=== PATIENT | male | born 1960 | race Caucasian/White ===

== ENCOUNTER 2017-02-18 22:02 | Observation (INO) | payer OTHER ==
[2017-02-18 22:15] VITALS: TEMP 98.3; BMI 34.5
[2017-02-18] MEDS ORDERED: ASPIRIN 81 MG CHEWABLE TABLETS PO ONE (22:20)
--- NOTE | 2017-02-18 22:21 | PDOC ---
History of Present Illness - General History Source: Patient Exam Limitations: No Limitations <Shanita Beal - Last Filed: 02/19/17 00:11> - General History Source: Patient Exam Limitations: No Limitations - History of Present Illness Presenting Symptoms: Other (left arm aching) Timing/Duration: reports: changing over time Severity/Quality: reports: aching Location: reports: other (left arm pain,no radiation) Activities at Onset: reports: none Prior Chest Pain/Cardiac Workup: reports: Cardiac Cath, Echocardiography, Heart Attack, Stress Test Nitro Today/Relief: Yes: no nitro taken today Aspirin Received prior to arrival (Core Measure): Yes: 81 mg x 2, provided by ED Beta Teri taken at Home (Core Measure): Yes Associated Symptoms: Yes: Denies symptoms <OsorioFiorella Lisa - Last Filed: 02/19/17 02:10> - General Chief Complaint: Pain, Acute Stated Complaint: LT ARM PAIN Time Seen by Provider: 02/18/17 22:14 - History of Present Illness Initial Comments: 02/18/17 22:40 The patient is a 56 year old male, with significant past medical history of CA s /p stents x3, HLD, HTN, who presents to the emergency department complaining of left arm pain that radiates to the hand starting 30 minutes ago. The patient states that this symptom occurred when he had heart attacks in the past. He is not experiencing chest pain or SOB at this time.The patient was also concerned that his blood pressure was 152/98. He notes that hiHe states that he had a normal EKG performed on Sunday, 3 days ago. Denies chest pain, SOB Denies fever, chills, nausea, vomiting. Allergies: poison ana, bee stings Energy Consultant: Dr. Navas (Shanita Beal) Past History <Shanita Beal - Last Filed: 02/19/17 00:11> - Past Medical History Anemia: No Asthma: No Cancer: No Cardiac Disorders: Yes (CA X 3) CVA: No COPD: No CHF: No DVT: No Dementia: No Diabetes: Yes (BORDERLINE) GI Disorders: Yes (REFLUX, RECTAL BLEEDING) Disorders: No HTN: Yes Hypercholesterolemia: Yes Liver Disease: No Seizures: No Thyroid Disease: No - Surgical History Abdominal Surgery: No Appendectomy: No Cardiac Surgery: Yes (STENT X 3) Cholecystectomy: No Lung Surgery: No Neurologic Surgery: No Orthopedic Surgery: Yes (LT THUMB SX, RT FINKY FOOT SX) - Psycho/Social/Smoking Cessation Hx Anxiety: No Suicidal Ideation: No Smoking Status: Yes Smoking History: Former smoker Have you smoked in the past 12 months: Yes Number of Cigarettes Smoked Daily: 20 If you are a former smoker, when did you quit?: 3 years Information on smoking cessation initiated: No 'Breaking Loose' booklet given: 08/27/14 Hx Alcohol Use: No Drug/Substance Use Hx: No Substance Use Type: None <Fiorella Ac - Last Filed: 02/19/17 02:10> - Past Medical History Allergies/Adverse Reactions: Allergies Allergy/AdvReac Type Severity Reaction Status Date / Time poison ana extract Allergy Verified 02/18/17 22:15 bee sting Allergy Uncoded 02/18/17 22:15 Home Medications: Ambulatory Orders Aspirin 81 mg PO DAILY 02/20/14 Metoprolol Succinate [Toprol XL -] 25 mg PO BID 02/20/14 Clopidogrel Bisulfate [Plavix -] 75 mg PO HS 09/28/14 Lisinopril [Prinivil] 5 mg PO DAILY 09/28/14 Oxycodone HCl/Acetaminophen [Percocet 5-325 mg Tablet] 1 - 2 tab PO Q6H #20 tablet 07/02/15 Gluc/Anil-MSM#1/Vit C/Daniel/Bor [Lmzfcde-Ovouh-ZVY Complex Cplt] 1 each PO ASDIR 02/18/17 Pravastatin Sodium [Pravachol] 40 mg PO HS 02/18/17 Cardiac Specific PMH - Complaint Specific PMHX Angina: Yes Cardiac Stent: Yes (x2) Pacemaker: No Peripheral Vascular Disease: No <Fiorella Ac - Last Filed: 02/19/17 02:10> Review of Systems - Review of Systems Able to Perform ROS?: Yes <Shanita Beal - Last Filed: 02/19/17 00:11> <Fiorella Ac - Last Filed: 02/19/17 02:10> - Review of Systems Comments:: 02/18/17 22:41 CONSTITUTIONAL: Absent: fever, chills, diaphoresis, generalized weakness, malaise, loss of appetite HEENT: Absent: rhinorrhea, nasal congestion, throat pain, throat swelling, difficulty swallowing, mouth swelling, ear pain, eye pain, visual Changes CARDIOVASCULAR: Absent: chest pain, syncope, palpitations, irregular heart rate, lightheadedness , peripheral edema RESPIRATORY: Absent: cough, shortness of breath, dyspnea with exertion, orthopnea, wheezing, stridor, hemoptysis GASTROINTESTINAL: Absent: abdominal pain, abdominal distension, nausea, vomiting, diarrhea, constipation, melena, hematochezia GENITOURINARY: Absent: dysuria, frequency, urgency, hesitancy, hematuria, flank pain, genital pain MUSCULOSKELETAL: Present: left arm pain. Absent: myalgia, arthralgia, joint swelling SKIN: Absent: rash, itching, pallor HEMATOLOGIC/IMMUNOLOGIC: Absent: easy bleeding, easy bruising, lymphadenopathy, frequent infections ENDOCRINE: Absent: unexplained weight gain, unexplained weight loss, heat intolerance, cold intolerance NEUROLOGIC: Absent: headache, focal weakness or paresthesias, dizziness, unsteady gait, seizure, mental status changes, bladder or bowel incontinence PSYCHIATRIC: Absent: anxiety, depression, suicidal or homicidal ideation, hallucinations. (Shanita Beal) *Physical Exam <Shanita Beal - Last Filed: 02/19/17 00:11> <Fiorella Ac - Last Filed: 02/19/17 02:10> - Vital Signs Last Vital Signs Temp Pulse Resp BP Pulse Ox 98.3 F 62 18 128/61 97 02/18/17 22:10 02/19/17 00:58 02/18/17 22:10 02/19/17 00:58 02/19/17 00:58 - Physical Exam Comments: 02/18/17 22:42 GENERAL: Well developed, well nourished. Awake and alert. In no acute distress. HEENT: Normocephalic, atraumatic. PERRLA, EOMI. No conjunctival pallor. Sclera are non- icteric. Moist mucous membranes. Oropharynx is clear. NECK: Supple. Full ROM. No JVD. Carotid pulses 2+ and symmetric, without bruits. No thyromegaly. No lymphadenopathy. CARDIOVASCULAR: Regular rate and rhythm. No murmurs, rubs, or gallops. Distal pulses are 2+ and symmetric. PULMONARY: No evidence of respiratory distress. Lungs clear to auscultation bilaterally. No wheezing, rales or rhonchi. ABDOMINAL: Soft. Non-tender. Non-distended. No rebound or guarding. No organomegaly. Normoactive bowel sounds. MUSCULOSKELETAL Normal range of motion at all joints. No bony deformities or tenderness. No CVA tenderness. EXTREMITIES: +1 pitting edema. No cyanosis. No clubbing. No calf tenderness. SKIN: Warm and dry. Normal capillary refill. No rashes. No jaundice. NEUROLOGICAL: Alert, awake, appropriate. Cranial nerves 2-12 intact. No deficits to light touch and temperature in face, upper extremities and lower extremities. No motor deficits in the in face, upper extremities and lower extremities. Normoreflexic in the upper and lower extremities. Normal speech. Toes are downgoing bilaterally. Gait is normal without ataxia. PSYCHIATRIC: Cooperative. Good eye contact. Appropriate mood and affect. (Shanita Beal) Heart Score/ECG Review <Shanita Beal - Last Filed: 02/19/17 00:11> - History History: Slightly suspicious - Electrocardiogram EKG: Normal - Age Age: 45-65 - Risk Factors Risk Factors Heart Score: Yes Hx Hypercholesterolemia, Yes Hx Hypertension, Yes Positive family hx of cardiac disease Based on the list above the patient has:: >/=3 risk factors or Hx atherosclerotic disease - Troponin Troponin: </= normal limit - Score Heart Score - Total: 3 #1 General ECG Interpretation: Normal Rate - ECG Intrepretation Rhythm: Regular Rhythm <Fiorella Ac - Last Filed: 02/19/17 02:10> #1 02/19/17 00:11 Normal sinus rhythm at 79bpm. Old inferior infarct. P-R-T axes 25 -34 87 (Shanita Beal) ED Treatment Course - LABORATORY CBC & Chemistry Diagram: 02/18/17 22:40 02/18/17 22:40 <Shanita Beal - Last Filed: 02/19/17 00:11> - LABORATORY CBC & Chemistry Diagram: 02/18/17 22:40 02/18/17 22:40 <Fiorella Ac - Last Filed: 02/19/17 02:10> - ADDITIONAL ORDERS Additional order review: Laboratory Results 02/18/17 02/18/1702/18/17 22:40 22:40 22:40 INR 0.96 Sodium 140 Potassium 4.2 Chloride 105 Carbon Dioxide 25 Anion Gap 10 BUN 17 D Creatinine 0.9 D Creat Clearance w eGFR > 60 Random Glucose 135 H Calcium 9.3 Magnesium 2.1 Total Bilirubin 0.3 D AST 23 D ALT 36 Alkaline Phosphatase 98 Creatine Kinase 161 D Creatine Kinase Index 1.7 CK-MB (CK-2) 2.699 CK-MB (CK-2) Rel Index Cancelled Troponin I < 0.02 D B-Natriuretic Peptide 107.22 Total Protein 6.9 Albumin 3.8 02/18/17 22:40 RBC 4.64 MCV 94.0 MCHC 34.0 RDW 14.0 MPV 9.3 Neutrophils % 47.4 D Lymphocytes % 41.9 H D Monocytes % 8.0 Eosinophils % 2.0 D Basophils % 0.7 - RADIOLOGY Radiology Studies Ordered: Category Date Time Status CHEST X-RAY PORTABLE* [RAD] Stat Radiology 02/18/17 22:21 Taken - Medications Given in the ED: ED Medications Discontinued Medications Generic Name Dose Route Start Last Admin Trade Name Freq PRN Reason Stop Dose Admin Aspirin 162 mg 02/18/17 22:20 02/18/17 22:34 Asa - PO 02/18/17 22:21 162 mg ONCE ONE Administration Medical Decision Making <Shanita Beal - Last Filed: 02/19/17 00:11> <Fiorella Ac - Last Filed: 02/19/17 02:10> - Medical Decision Making 02/19/17 02:06 56 yo male p/w after he dev left arm aching,denies trauma pmh-CA,CAD, CARDIAC STENTS,HTN,HLD ekg NSR @ 79 ,old inferior infarct,left axis deviation 1st trop is negative pt took plavix,baby aspirin and b blockers earlier today -spoke w Dr Schuster who is covering for Dr Lockett .Recommend OBS TELEMTRY -Dr Abel is admitting for Dr Billy reardon (Fiorella Ac) *DC/Admit/Observation/Transfer <Shanita Beal - Last Filed: 02/19/17 00:11> - Discharge Dispostion Admit: Yes <Fiorella Ac - Last Filed: 02/19/17 02:10> Diagnosis at time of Disposition: Angina at rest Hypertension Qualifiers: Hypertension type: essential hypertension Qualified Code(s): I10 - Essential ( primary) hypertension Coronary artery disease Qualifiers: Coronary Disease-Associated Artery/Lesion type: [place] artery [place] vs. transplanted heart: [place] heart Associated angina: with stable angina Qualified Code(s): I25.118 - Atherosclerotic heart disease of [place] coronary artery with other forms of angina pectoris - Discharge Dispostion Decision to Admit order Date/Time: Decision to Admit Order Category Date Time Status Decision to Admit to Hospital Routine Admission 02/19/17 01:12 Active - Referrals Referrals: Perfecto Cervantes MD [Primary Care Provider] - - Attestations Scribe Attestion: 02/18/17 22:42 Documentation prepared by JUDY Moreno, acting as medical assistant ob gyn for Fiorella Ac MD. (Shanita Beal)
[2017-02-18] MEDS ORDERED: ASPIRIN 81 MG CHEWABLE TABLETS ONE (22:30)
[2017-02-18 23:02] LABS: BASOPHIL 0.7 % (0-2.0); MCH 31.9 pg (25.7-33.7); MEAN PLT VOLUME 9.3 fl (7.5-11.1); NEUTROPHILS 47.4 % (42.8-82.8); PLATELET COUNT 231 K/MM3 (134-434); WHITE BLOOD COUNT 8.6 K/mm3 (4.0-10.0)
[2017-02-18 23:10] LABS: INR 0.96 (0.82-1.09); PROTHROMBIN TIME (PATIENT) 10.6 SEC (9.98-11.88)
[2017-02-18 23:30] LABS: ALBUMIN 3.8 g/dl (3.4-5.0); ANION GAP 10 (8-16); BILIRUBIN,TOTAL 0.3 mg/dL (0.2-1.0); CALCIUM 9.3 mg/dL (8.5-10.1); CO2 25 mmol/L (21-32); CREATININE 0.9 mg/dL (0.7-1.3); GLUCOSE,RANDOM 135 mg/dL (74-106); MAGNESIUM 2.1 mg/dL (1.8-2.4); SGOT/AST 23 U/L (15-37); SGPT/ALT 36 U/L (12-78); TOT PROT 6.9 g/dl (6.4-8.2)
[2017-02-18 23:33] LABS: ALK PHOS 98 U/L (45-117); TROPONIN I < 0.02 ng/ml (0.00-0.05)
--- NOTE | 2017-02-19 01:28 | HP ---
CHIEF COMPLAINT: L- Arm Pain PCP: Dr. Cervantes Night Monitor: Dr. Lockett HISTORY OF PRESENT ILLNESS: This is a 56 y/o male with a past medical history of ME x2 (2014,2013), HTN, HLD , Former Smoker. Who presents to the ED with L- arm pain x 3-4 days, worse tonight 2100. Patient reports the pain was similar to the ME he had 3 years ago. Patient reports recently starting weight strengthening to his upper body. He also reports restarting his meds 02/16 from last March due to lack of insurance. Patient reports being seen his PMD last Sunday for the same pain. Patient denies fever, chills, SOB, diaphoresis, AP, N/V/D, constipation, dysuria ER course was notable for: (1) Cardiac Enzyme neg x1 (2) EKG NSR inferior infarct age undetermined (3) Chest Xray image- no infiltrate or effusion Recent Travel: None PAST MEDICAL HISTORY: ME x2 HTN HLD Former Smoker PAST SURGICAL HISTORY: Social History: Smoking: Former Alcohol: Socially Drugs: None Family History: Mother: CHF Allergies poison ana extract Allergy (Verified 02/18/17 22:15) bee sting Allergy (Uncoded 02/18/17 22:15) HOME MEDICATIONS: Home Medications Medication Instructions Recorded Aspirin 81 mg PO DAILY 02/20/14 Metoprolol Succinate [Toprol XL -] 25 mg PO BID 02/20/14 Clopidogrel Bisulfate [Plavix -] 75 mg PO HS 09/28/14 Lisinopril [Prinivil] 5 mg PO DAILY 09/28/14 Oxycodone HCl/Acetaminophen 1 - 2 tab PO Q6H #20 tablet 07/02/15 [Percocet 5-325 mg Tablet] Gluc/Anil-MSM#1/Vit C/Daniel/Bor 1 each PO ASDIR 02/18/17 [Xnrxojk-Kzuzj-YRH Complex Cplt] Pravastatin Sodium [Pravachol] 40 mg PO HS 02/18/17 REVIEW OF SYSTEMS CONSTITUTIONAL: Absent: fever, chills, diaphoresis, generalized weakness, malaise, loss of appetite, weight change HEENT: Absent: rhinorrhea, nasal congestion, throat pain, throat swelling, difficulty swallowing, mouth swelling, ear pain, eye pain, visual changes CARDIOVASCULAR: Absent: chest pain, syncope, palpitations, irregular heart rate, lightheadedness , peripheral edema RESPIRATORY: Absent: cough, shortness of breath, dyspnea with exertion, orthopnea, wheezing, stridor, hemoptysis GASTROINTESTINAL: Absent: abdominal pain, abdominal distension, nausea, vomiting, diarrhea, constipation, melena, hematochezia GENITOURINARY: Absent: dysuria, frequency, urgency, hesitancy, hematuria, flank pain, genital pain MUSCULOSKELETAL: L-arm pain Absent: myalgia, arthralgia, joint swelling, back pain, neck pain SKIN: Absent: rash, itching, pallor HEMATOLOGIC/IMMUNOLOGIC: Absent: easy bleeding, easy bruising, lymphadenopathy, frequent infections ENDOCRINE: Absent: unexplained weight gain, unexplained weight loss, heat intolerance, cold intolerance NEUROLOGIC: Absent: headache, focal weakness or paresthesias, dizziness, unsteady gait, seizure, mental status changes, bladder or bowel incontinence PSYCHIATRIC: Absent: anxiety, depression, suicidal or homicidal ideation, hallucinations. PHYSICAL EXAMINATION Vital Signs - 24 hr 02/18/17 02/19/17 22:10 00:58 Temperature 98.3 F Pulse Rate 78 Pulse Rate [ 62 Apical] Respiratory 18 Rate Blood Pressure 152/98 Blood Pressure 128/61 [Right Arm] O2 Sat by Pulse 95 97 Oximetry (%) GENERAL: Awake, alert, and fully oriented, in no acute distress. HEAD: Normal with no signs of trauma. EYES: Pupils equal, round and reactive to light, extraocular movements intact, sclera anicteric, conjunctiva clear. No lid lag. EARS, NOSE, THROAT: Ears normal, nares patent, oropharynx clear without exudates. Moist mucous membranes. NECK: Normal range of motion, supple without lymphadenopathy, JVD, or masses. LUNGS: Breath sounds equal, clear to auscultation bilaterally. No wheezes, and no crackles. No accessory muscle use. HEART: Regular rate and rhythm, normal S1 and S2 without murmur, rub or gallop. ABDOMEN: Soft, nontender, not distended, normoactive bowel sounds, no guarding, no rebound, no masses. No hepatomegaly or splenomegaly. MUSCULOSKELETAL: +tenderness L- humerus medial aspect- Normal range of motion at all joints. No bony deformities. No CVA tenderness. UPPER EXTREMITIES: 2+ pulses, warm, well-perfused. No cyanosis. No clubbing. No peripheral edema. LOWER EXTREMITIES: 2+ pulses, warm, well-perfused. No calf tenderness. No peripheral edema. NEUROLOGICAL: Cranial nerves II-XII intact. Normal speech. Gait not observed. PSYCHIATRIC: Cooperative. Good eye contact. Appropriate mood and affect. SKIN: Warm, dry, normal turgor, no rashes or lesions noted, normal capillary refill. Laboratory Results - last 24 hr 02/18/17 02/18/17 02/18/17 22:40 22:40 22:40 WBC 8.6 D RBC 4.64 Hgb 14.8 Hct 43.6 MCV 94.0 MCHC 34.0 RDW 14.0 Plt Count 231 MPV 9.3 Neutrophils % 47.4 D Lymphocytes % 41.9 H D Monocytes % 8.0 Eosinophils % 2.0 D Basophils % 0.7 INR 0.96 Sodium 140 Potassium 4.2 Chloride 105 Carbon Dioxide 25 Anion Gap 10 BUN 17 D Creatinine 0.9 D Creat Clearance w eGFR > 60 Random Glucose 135 H Calcium 9.3 Magnesium 2.1 Total Bilirubin 0.3 D AST 23 D ALT 36 Alkaline Phosphatase 98 Creatine Kinase 161 D Creatine Kinase Index 1.7 CK-MB (CK-2) 2.699 CK-MB (CK-2) Rel Index Troponin I < 0.02 D B-Natriuretic Peptide 107.22 Total Protein 6.9 Albumin 3.8 02/18/17 22:40 WBC RBC Hgb Hct MCV MCHC RDW Plt Count MPV Neutrophils % Lymphocytes % Monocytes % Eosinophils % Basophils % INR Sodium Potassium Chloride Carbon Dioxide Anion Gap BUN Creatinine Creat Clearance w eGFR Random Glucose Calcium Magnesium Total Bilirubin AST ALT Alkaline Phosphatase Creatine Kinase Creatine Kinase Index CK-MB (CK-2) CK-MB (CK-2) Rel Index Cancelled Troponin I B-Natriuretic Peptide Total Protein Albumin ASSESSMENT/PLAN: This is a 56 y/o male with a PMHx of: MIx2, HTN, HLD. Placed on Tele Observation for L- arm pain r/o ME for further evaluation of heir emergent condition. Problem List - Problem (1) Left arm pain Assessment/Plan: - r/o ME - Tele monitoring - HEART Score 5 - Appreciate Cardiology Consult - Asa given in ED - Continue Asa, BB, Statin - Echo in am Code(s): M79.602 - PAIN IN LEFT ARM (2) Coronary artery disease Assessment/Plan: - Tele monitoring - EKG- reviewed - Trop I neg x1 - Serial Enzymes - Continue home meds - Low Na, Low Cholesterol Diet Code(s): I25.10 - ATHSCL HEART DISEASE OF [place] CORONARY ARTERY W/O ANG PCTRS Qualifiers: Coronary Disease-Associated Artery/Lesion type: [place] artery [place] vs. transplanted heart: [place] heart Associated angina: with stable angina Qualified Code(s): I25.118 - Atherosclerotic heart disease of [place] coronary artery with other forms of angina pectoris (3) Hypertension Assessment/Plan: - Monitor BP - Continue home meds - Low Na Diet Code(s): I10 - ESSENTIAL (PRIMARY) HYPERTENSION Qualifiers: Hypertension type: essential hypertension Qualified Code(s): I10 - Essential (primary) hypertension (4) HLD (hyperlipidemia) Assessment/Plan: - Continue home med - Lipid panel in am Code(s): E78.5 - HYPERLIPIDEMIA, UNSPECIFIED (5) DVT prophylaxis Assessment/Plan: - OOB - SCDs Code(s): JCA5607 - Visit type - Emergency Visit Emergency Visit: Yes ED Registration Date: 02/19/17 Care time: The patient presented to the Emergency Department on the above date and was hospitalized for further evaluation of their emergent condition. - New Patient This patient is new to me today: Yes Date on this admission: 02/19/17 - Critical Care Critical Care patient: No
[2017-02-19 06:45] LABS: BASOPHIL 0.4 % (0-2.0); MCH 32.1 pg (25.7-33.7); MCHC 33.7 g/dl (32.0-35.9); MEAN CELL VOLUME 95.2 fl (80-96); NEUTROPHILS 47.2 % (42.8-82.8); PLATELET COUNT 207 K/MM3 (134-434); RDW 14.2 % (11.9-15.9); WHITE BLOOD COUNT 6.5 K/mm3 (4.0-10.0)
[2017-02-19 07:06] LABS: CALCIUM 9.2 mg/dL (8.5-10.1); CREATININE 0.9 mg/dL (0.7-1.3); MAGNESIUM 2.1 mg/dL (1.8-2.4); PHOSPHOROUS 3.1 mg/dL (2.5-4.9)
[2017-02-19 07:09] LABS: CHOLESTEROL 163 mg/dL (50-200); LDL CHOLESTEROL (ONLY SJRH) 106 mg/dL (5-100)
[2017-02-19 07:11] LABS: TROPONIN I < 0.02 ng/ml (0.00-0.05)
[2017-02-19] MEDS ORDERED: LISINOPRIL 5 MG TABLET (FP) PO SCH (10:00)
[2017-02-19] MEDS ORDERED: ASPIRIN 81 MG CHEWABLE TABLETS PO SCH (10:00)
[2017-02-19] MEDS ORDERED: METOPROLOL SUCCINATE 25 MG TAB.SR.24H (FP) PO SCH (10:00)
[2017-02-19] MEDS ORDERED: ASPIRIN 81 MG CHEWABLE TABLETS ONE (10:02)
--- NOTE | 2017-02-19 10:28 | CON.CARD ---
Consult Consult Specialty:: cardio Referred by:: ER Reason for Consultation:: arm pain, h/o MIs - History of Present Illness Chief Complaint: arm pain History of Present Illness: 56 yo male here with arm pain. last saw me in office 06/03. was cycling long distance incl hills, feeling well without cp, sob, incr fatigue. noted sporadic tingling in bilateral lower arms near elbow when at work with a lot of activity involing his arms; also "muscle ache" quality of arm discomfort if lifts heavy things (different from prior arm myalgias on simva which were constant pains) insurance lapsed so no recent MD f/u. saw radha (pmd) 02/16 b/c of self-limited (approx 15min) episode localized dull discomfort in L upper arm near elbow. no radiation, no assctd chest or back/scapula pain, no diaph/sob/LH. then same sx's yest in car, this time with associated pain across R hand knuckles. again no radiation or assctd sx's and resolved on its own in 15min. pt says was mild, dull discomfort but very anxious about it ("scared the piss out of me") so came to ER for evaluation. he has continued to exercise regularly, does sta bike 35min at gym including earlier yest--no cp, arm pain, sob, dizzy, undue fatigue. prior OK sx's were CP with associated L scapular pain, once with pain down entire L arm from shoulder to hand PMH: CAD, prior MIs HTN HPL - Alcohol/Substance Use Hx Alcohol Use: No - Smoking History Smoking history: Former smoker Have you smoked in the past 12 months: Yes Aproximately how many cigarettes per day: 20 If you are a former smoker, when did you quit?: 3 years Home Medications - Allergies Allergies/Adverse Reactions: Allergies Allergy/AdvReac Type Severity Reaction Status Date / Time poison ana extract Allergy Verified 02/18/17 22:15 bee sting Allergy Uncoded 02/18/17 22:15 - Home Medications Home Medications: Ambulatory Orders Aspirin 81 mg PO DAILY 02/20/14 Metoprolol Succinate [Toprol XL -] 25 mg PO BID 02/20/14 Clopidogrel Bisulfate [Plavix -] 75 mg PO HS 09/28/14 Lisinopril [Prinivil] 5 mg PO DAILY 09/28/14 Oxycodone HCl/Acetaminophen [Percocet 5-325 mg Tablet] 1 - 2 tab PO Q6H #20 tablet 07/02/15 Gluc/Anil-MSM#1/Vit C/Daniel/Bor [Idpjfrc-Fmecj-EWY Complex Cplt] 1 each PO ASDIR 02/18/17 Pravastatin Sodium [Pravachol] 40 mg PO HS 02/18/17 Vital Signs: Vital Signs Temperature 98.3 F 02/18/17 22:10 Pulse Rate 64 02/19/17 07:49 Respiratory Rate 16 02/19/17 07:49 Blood Pressure 133/85 02/19/17 07:49 O2 Sat by Pulse Oximetry (%) 94 L 02/19/17 07:49 - Other Data Labs, Other Data: CBC, BMP 02/19/17 06:35 02/19/17 06:35 INR, PTT INR 0.96 (0.82-1.09) 02/18/17 22:40 Troponin, BNP 02/19/17 06:35 Troponin I < 0.02 Troponin, BNP 02/19/17 06:35 Troponin I < 0.02 Laboratory Tests 02/18/17 02/19/17 02/19/17 22:40 06:35 06:35 WBC 6.5 Hgb 14.7 Plt Count 207 Sodium 142 Potassium 4.4 Carbon Dioxide 28 BUN 20 H Creatinine 0.9 Hemoglobin A1c % AST 23 D ALT 36 Creatine Kinase 161 D Troponin I < 0.02 D B-Natriuretic Peptide 107.22 Triglycerides Cholesterol Total LDL Cholesterol HDL Cholesterol 02/19/17 02/19/17 02/19/17 06:35 06:35 06:35 WBC Hgb Plt Count Sodium Potassium Carbon Dioxide BUN Creatinine Hemoglobin A1c % 6.3 H AST ALT Creatine Kinase 122 Troponin I < 0.02 B-Natriuretic Peptide Triglycerides 129 Cholesterol 163 Total LDL Cholesterol 106 H HDL Cholesterol 36 L Imaging - Results Chest X-ray: Report Reviewed (clear lungs/pleura) Assessment/Plan MPI 08/2014: 6:55 min; small, predominantly fixed defect/severe intensity basal inferior/inferolateral wall with minimal michelle-infarct ischemia c/w prior scar; minimally reduced LVEF Echo 09/2015: nl LV size, mild decr EF (45-50%); akinesis mid-basal inferolateral wall; nl RV; mild LAE; valves WNL [facility] 02/2014: ISR with thrombotic lesion distal LCX (90%)--Xience; patent LPDA stent; 50-60% mid LAD; mild diffuse dz incl prox LAD atypical CP: -EKG here with NSR, old IWMI, nonsp ST-Ts high lateral leads--not changed vs office -repeat ECG this am unchanged -troponin x 2 negative -echo was ordered in ER, results are pending -sx's are highly atypical, very unlikely anginal and not like his prior angina pains; -biomarkers/ekg reassuring, no concerning clinical findings -rec f/u echo for LV fxn (expect basal infer/inferolat WMA, scar known here) -otherwise, pt can have outpt stress echo and continue prior home meds until cleared by normal stress test--i will arrange h/o CAD: -left-dominant coronary anatomy system with prior PCIs of distal LCX and LPDA -IW STEMI 02/2014 due to thrombotic in-stent occlusion of distal LCX--Xience JODY done -no residual obstructive CAD (moderate 50-60% dz in mid LAD) -followup nuclear stress test 6 mo later (08/2014) no ischemia, +scar in basal inferior/inferolateral wall -plan was DAPT x 3 yrs (DAPT trial)--cont for now -on lisin 5, metopr 25 bid, prava 40 HTN: -well controlled -cont home meds HPL: -LDL 100s -on prava 40 at home, intolerant of prior simva trial -defer to outpt f/u ? intensify statin regimen IFG: -A1c 6.3% here -outpt mgmt
[2017-02-19 13:18] LABS: TROPONIN I < 0.02 ng/ml (0.00-0.05)
--- NOTE | 2017-02-19 16:09 | DS ---
Physical Exam: SUBJECTIVE: Patient seen and examined. denies any chest pain or shortness of breath. Agreed to see Dr. Lockett for further test as an outpatient. OBJECTIVE: lungs clear bilaterally denies chest pain, shortness of breath L scapular pain pain down entire L arm from shoulder to hand - resolved Vital Signs Period Temp Pulse Resp BP Sys/Hansen Pulse Ox Last 24 Hr 63-64 16-18 129-133/74-85 94-95 PHYSICAL EXAM GENERAL: The patient is awake, alert, and fully oriented, in no acute distress. HEAD: Normal with no signs of trauma. EYES: PERRL, extraocular movements intact, sclera anicteric, conjunctiva clear. ENT: Ears normal, nares patent, oropharynx clear without exudates, moist mucous membranes. NECK: Trachea midline, full range of motion, supple. LUNGS: Breath sounds equal, clear to auscultation bilaterally, no wheezes, no crackles, no accessory muscle use. HEART: Regular rate and rhythm, S1, S2 without murmur, rub or gallop. ABDOMEN: Soft, nontender, nondistended, normoactive bowel sounds, no guarding, no rebound, no hepatosplenomegaly, no masses. EXTREMITIES: 2+ pulses, warm, well-perfused, no edema. NEUROLOGICAL: Cranial nerves II through XII grossly intact. Normal speech, gait not observed. PSYCH: Normal mood, normal affect. SKIN: Warm, dry, normal turgor, no rashes or lesions noted. LABS Laboratory Results - last 24 hr 02/19/17 02/19/17 02/19/17 06:35 06:35 06:35 WBC 6.5 RBC 4.57 Hgb 14.7 Hct 43.5 MCV 95.2 MCHC 33.7 RDW 14.2 Plt Count 207 MPV 9.0 Neutrophils % 47.2 Lymphocytes % 40.8 H Monocytes % 9.6 Eosinophils % 2.0 Basophils % 0.4 Sodium 142 Potassium 4.4 Chloride 106 Carbon Dioxide 28 Anion Gap 8 BUN 20 H Creatinine 0.9 Random Glucose 108 H Hemoglobin A1c % Calcium 9.2 Phosphorus 3.1 Magnesium 2.1 Creatine Kinase 122 Troponin I < 0.02 Triglycerides Cholesterol Total LDL Cholesterol HDL Cholesterol 02/19/17 02/19/17 02/19/17 06:35 06:35 12:40 WBC RBC Hgb Hct MCV MCHC RDW Plt Count MPV Neutrophils % Lymphocytes % Monocytes % Eosinophils % Basophils % Sodium Potassium Chloride Carbon Dioxide Anion Gap BUN Creatinine Random Glucose Hemoglobin A1c % 6.3 H Calcium Phosphorus Magnesium Creatine Kinase 98 Troponin I < 0.02 Triglycerides 129 Cholesterol 163 Total LDL Cholesterol 106 H HDL Cholesterol 36 L HOSPITAL COURSE: Date of Admission:02/19/17 Date of Discharge: 02/19/17 Discharge Summary Reason For Visit: ANGINA AT REST HYPERTENSION Current Active Problems Angina at rest (Acute) Coronary artery disease (Acute) DVT prophylaxis (Acute) HLD (hyperlipidemia) (Acute) Hypertension (Acute) Left arm pain (Acute) Condition: Stable - Instructions Diet, Activity, Other Instructions: Patient to have outpatient stress echo as an outpatient and continue prior home meds until cleared by normal stress test--Dr. Lockett will arrange. Please return to the ED with any new or worsening pain. Please follow up with your PCP regarding your hemoglobin A1c @ 6.3 Referrals: Perfecto Cervantes MD [Primary Care Provider] - Isidro Lockett MD [Staff Physician] - Disposition: HOME - Home Medications Comprehensive Discharge Medication List: Ambulatory Orders Aspirin 81 mg PO DAILY 02/20/14 Metoprolol Succinate [Toprol XL -] 25 mg PO BID 02/20/14 Clopidogrel Bisulfate [Plavix -] 75 mg PO HS 09/28/14 Lisinopril [Prinivil] 5 mg PO DAILY 09/28/14 Gluc/Anil-MSM#1/Vit C/Daniel/Bor [Imvngnd-Ydzkr-VEW Complex Cplt] 1 each PO ASDIR 02/18/17 Pravastatin Sodium [Pravachol] 40 mg PO HS 02/18/17
[2017-02-19 16:43] VITALS: BP 112/74; PULSE 65
[2017-02-19] MEDS ORDERED: PRAVASTATIN NA 40 MG TABLET PO SCH (22:00)
[2017-02-19] MEDS ORDERED: CLOPIDOGREL BISULFATE 75 MG TABLET (FP) PO SCH (22:00)
--- NOTE | 2017-02-20 17:39 | EKG ---
Test Reason : Blood Pressure : / mmHG Vent. 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
--- NOTE | 2017-02-20 17:46 | EKG ---
Test Reason : Blood Pressure : / mmHG Vent. 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
== END 2017-02-19 18:47 | disposition home or self-care (01) ==
LOC: JER 22:02 → JERBED 02-19 01:12 → UNDOADMOB 02-19 01:52
PROVIDERS: ADMIT Internal Medicine; ATTEND Nurse Practitioner Family
DX: M79.602 Pain in left arm (principal); I10 Essential (primary) hypertension; I25.118 Atherosclerotic heart disease of native coronary artery with other forms of angina pectoris; Z95.5 Presence of coronary angioplasty implant and graft; E78.5 Hyperlipidemia, unspecified; R73.03 Prediabetes; K21.9 Gastro-esophageal reflux disease without esophagitis; Z87.19 Personal history of other diseases of the digestive system; Z87.891 Personal history of nicotine dependence; Z79.82 Long term (current) use of aspirin; Z79.01 Long term (current) use of anticoagulants
CPT/HCPCS: 36415; 71010-TC; 80048; 80053; 80061; 82550; 82553; 83036; 83721; 83735; 83880; 84100; 84484; 85025; 85610; 93005; 93010; 93306-TC; 99283-25; G0378

== ENCOUNTER 2018-11-07 11:48 | Day surgery (SDC) | payer BC ==
[2018-11-06 17:16] VITALS: BMI 38.7
[2018-11-07] MEDS ORDERED: MIDAZOLAM HCL 2 MG/2 ML SINGLE DOSE VIAL ONE ×2 (13:16→14:41)
[2018-11-07] MEDS ORDERED: DEXAMETHASONE SOD PHOSPHATE/PF 10 MG/ML SDV ONE (13:16)
[2018-11-07] MEDS ORDERED: BUPIVACAINE HCL/PF (5 MG/ML) 30 ML VIAL IJ ONE (13:16)
[2018-11-07] MEDS ORDERED: DEXMEDETOMIDINE HCL 200 MCG/2 ML ML IVPB ONE (14:12)
[2018-11-07] MEDS ORDERED: BUPIVACAINE HCL/PF 2.5 MG/ML - 30 ML VIAL IJ ONE (14:20)
[2018-11-07] MEDS ORDERED: ceFAZolin SODIUM 1 GM VIAL ONE (14:38)
[2018-11-07] MEDS ORDERED: oxyCODONE HCL 5 MG TABLET PO PRN ×2 (15:17→16:54)
[2018-11-07] MEDS ORDERED: ONDANSETRON 4 MG/2 ML VIAL IVPUSH PRN ×2 (15:17→16:54)
[2018-11-07] MEDS ORDERED: BUPIVACAINE HCL/PF 0.25% (2.5MG/ML) 10 ML VIAL IJ ONE ×2 (15:22→16:28)
[2018-11-07] MEDS ORDERED: PROPOFOL 20 ML ONE (15:28)
[2018-11-07] MEDS ORDERED: LACTATED RINGERS SOLUTION 1,000 ML IV SCH ×2 (15:30→17:00)
[2018-11-07] MEDS ORDERED: IBUPROFEN 400 MG TABLET (FP) PO PRN (16:54)
[2018-11-07] MEDS ORDERED: ACETAMINOPHEN 325 MG TABLET (FP) PO PRN (16:54)
--- NOTE | 2018-11-07 17:12 | OPR ---
DATE OF SURGERY: 11/07/18 TITLE OF OPERATION: RIGHT Distal Biceps Repair PREOPERATIVE DIAGNOSIS: RIGHT Distal Biceps Rupture POSTOPERATIVE DIAGNOSIS: RIGHT Distal Biceps Rupture SURGEON: Shaheen Vale D.O. SWITCHBOARD INSTALLER: Aaron Mcconnell D.O. ANESTHESIA: Regional SPECIMEN: Distal Biceps tendon IMPLANT: Arthrex Distal Biceps Button COMPLICATIONS: None EBL: 2ml TOURNIQUET TIME: 80 mins INDICATIONS FOR SURGERY: Mr. Guardado is a 58 year old male who presented in the preoperative setting with a chief complaint of right distal biceps tendon rupture. Based on their pre -injury level of activity, surgical treatment was discussed. The risks and benefits of surgery and anesthesia were discussed in detail including but not limited to pain, bleeding, continued weakness, infection, scarring, damage to vessels and nerves, failure to obtain the desired result, failure to heal, failure to return to sport or work. Understanding the risks and benefits, Mr. Remy opted to proceed with surgical management. SURGEONS NARRATIVE: After informed consent was obtained, the patient was brought to the operating room prepped and draped in usual fashion using sterile technique. Timeout was called. Site verification was performed and perioperative antibiotics were administered. An elbow tourniquet was placed and elevated. A transverse incision, 3 cm in length, was made just distal to the elbow flexion crease. Dissection was carried down bluntly to the biceps tuberosity taking care to avoid all nearby neurovascular structures. A 2-0 silk suture was used to tie off a two veins that were adhered to the distal biceps and impeding visualization. Examination of the biceps tuberosity revealed a near complete tear of the biceps tendon with only about 5% of the surface area covered by tendon laterally. This portion of the tendon did not appear normal. I then turned my attention proximally to identify the torn stump of the biceps tendon. I was easily able to identify it confirming that the vast majority of the tendon had been torn off of the tuberosity. I placed a whipstitch into the tendon using a fiber loop suture passing 5 locked sutures through the tendon end. Once I felt that I had a good hold on the tendon I then placed the sutures through a biceps button in a standard fashion. They were passed to allow for tension slide technique. I then used a spade-tip guidewire to drill through the center of the biceps tuberosity with the forearm held in hyper supination. Once through the first cortex, I confirmed it's correct positioning with a mini c-arm fluroscopy. Once confirmed in good position, I drilled the drill bit through the second cortex. I then overdrilled the proximal cortex with a 7.5 mm drill bit. I irrigated the elbow at this point liberally. I passed the biceps button across the far cortex and flipped it locking firmly. I then marcus the distal biceps tendon into the socket I created with the elbow flexed about 45. I then used a free needle to thread one of the limbs of suture through the tendon, and tied the sutures over the tendon to complete the construct. This created a very strong construct that remained secure through flexion extension of the elbow. The tourniquet was released, and bleeders were cauterized. I liberally irrigated the elbow with normal saline. I closed the volar forearm incision proximally with 2-0 Vicryl for the subcutaneous layer and a running 3-0 Monocryl for the skin. Dermabond was used, and sterile telfa pad, then sterile 4x4's and webril were placed over the wound. The patient was then placed in elbow splint posteriorly at 90 elbow flexion, in slight supination. The patient tolerated procedure well and arrived recovery in stable condition. His follow up date has already been made, and prescriptions already filled. He will keep the splint clean/dry, and his right arm in a sling at all times. He knows to call the office with any questions. Dr. Aaron Mcconnell was 1st diet assistant in the case due to no qualified resident or PA being available. Shaheen Vale, Orthopedic Surgery
[2018-11-07 18:50] VITALS: BP 110/62; PULSE 60; TEMP 97.7
--- NOTE | 2018-11-11 16:55 | PATH ---
Surgical Pathology Report Patient Name: GUERITA FREIRE Med. Rec. #: [id number] /Age/Gender: 1960 (Age: 58) / M Account: [id number] Location: [facility] AMBULATORY Taken: 11/08/2018 Received: 11/08/2018 Reported: 11/11/2018 Physicians: Shaheen Vale MD Specimen(s) Received RIGHT BICEPS TENDON SHEATH Clinical History Right distal biceps tendon rupture Final Diagnosis BICEPS TENDON SHEATH, RIGHT, REPAIR: FIBROCONNECTIVE AND FIBROADIPOSE TISSUE WITH GRANULATION TISSUE, HEMORRHAGE, AND REACTIVE CHANGES. Electronically Signed Anastasia Montelongo M.D. Gross Description Received in formalin labeled "right biceps tendon sheath," is a 3.3 x 1.8 x 0.7 cm elizabeth-brown, irregular portion of soft tissue is. Server Developer sections are submitted in one cassette. /11/08/201811/08/2018
== END 2018-11-07 18:40 | disposition home or self-care (01) ==
LOC: FASU 11:48
PROVIDERS: ATTEND Orthopaedic Surgery Sports Medicine
PROC: 0LM10ZZ Reattachment of Right Shoulder Tendon, Open Approach (ICD-10-PCS; principal; 2018-11-07 13:30)
DX: S46.211A Strain of muscle, fascia and tendon of other parts of biceps, right arm, initial encounter (principal); X58.XXXA Exposure to other specified factors, initial encounter; Y93.9 Activity, unspecified; Y92.9 Unspecified place or not applicable
CPT/HCPCS: 73070-TC-RT-FY; 88304-TC; 94760

== ENCOUNTER 2018-11-20 22:48 | Observation (INO) | payer BC ==
[2018-11-20 23:06] VITALS: BMI 38.7
--- NOTE | 2018-11-21 01:21 | PDOC ---
History of Present Illness - General Chief Complaint: Chest Pain Stated Complaint: HALLWAY 11A Time Seen by Provider: 11/21/18 01:21 History Source: Patient Exam Limitations: No Limitations - History of Present Illness Initial Comments: 11/21/18 01:54 58 year old male with PMH AR x3, HTN, HLD, former smoker presented to ED for anterior chest wall pain from 2245 last night to 0045 today. Pt stated the pain is located to his lateral lower chest bilaterally, was constant, self resolved, no alleviating or aggravating factors. Pt admitted to nonproductive cough since this morning. Pt denied fever, chills, shortness of breath, nausea, vomiting, lower extremity swelling. Pt had biceps tendon rupture surgically repaired x2 weeks ago. Pt stated he took 325 mg ASA 11/21/18. Pt stated prior presentation of AR involved cough and back pain. Past History - Past Medical History Allergies/Adverse Reactions: Allergies Allergy/AdvReac Type Severity Reaction Status Date / Time poison ana extract Allergy Severe Hives Verified 11/07/18 12:43 bee sting Allergy Severe Swelling Uncoded 11/07/18 12:43 Home Medications: Ambulatory Orders Aspirin 81 mg PO DAILY 02/20/14 Metoprolol Succinate [Toprol XL -] 25 mg PO DAILY 02/20/14 Pravastatin Sodium [Pravachol] 40 mg PO DAILY 02/18/17 Cholecalciferol (Vitamin D3) [Vitamin D3] 2,000 unit PO DAILY 11/06/18 Lisinopril/Hydrochlorothiazide [Lisinopril-Hctz 10-12.5 mg Tab] 1 each PO DAILY 11/06/18 Pantoprazole Sodium 40 mg PO DAILY 11/06/18 Anemia: No Asthma: No Cancer: No Cardiac Disorders: Yes (AR X 3-LAST 2012-LAST STRESS 2017-PER CARDIOLOGY, STOPPED PLAVIX 1 WEEK AGO) CVA: No COPD: No CHF: No (NO NEED TO RESTART) DVT: No Dementia: No Diabetes: No GI Disorders: Yes (REFLUX, RECTAL BLEEDING) Disorders: No HTN: Yes Hypercholesterolemia: Yes Liver Disease: No Seizures: No Thyroid Disease: No - Surgical History Abdominal Surgery: No Appendectomy: No Cardiac Surgery: Yes (STENT X 3-LAST 2012) Cholecystectomy: No Lung Surgery: No Neurologic Surgery: No Orthopedic Surgery: Yes (LT THUMB SX, RT PINKY FOOT SX) - Suicide/Smoking/Psychosocial Hx Smoking Status: Yes Smoking History: Former smoker Have you smoked in the past 12 months: No Number of Cigarettes Smoked Daily: 20 If you are a former smoker, when did you quit?: 2012 Information on smoking cessation initiated: No 'Breaking Loose' booklet given: 08/27/14 Hx Alcohol Use: No Drug/Substance Use Hx: No Substance Use Type: Alcohol Hx Substance Use Treatment: No Review of Systems - Review of Systems Able to Perform ROS?: Yes Comments:: 11/21/18 03:06 General: denied fever, chills, night sweats, generalized weakness. HEENT: denied sore throat, rhinorrhea, ear pain. Heart: admitted to chest pain. denied palpitations, syncope, lower extremity swelling, diaphoresis. Respiratory: denied shortness of breath, cough, sputum production, hemoptysis. Abdomen: denied abdominal pain, nausea, vomiting, diarrhea, constipation, blood in stool. : denied dysuria, increased urinary frequency, hematuria, urinary incontinence , flank pain. Back: denied back pain. Musculoskeletal: denied joint pain, muscle pain, joint swelling. Neurological: denied headache, dizziness, n *Physical Exam - Vital Signs Last Vital Signs Temp Pulse Resp BP Pulse Ox 98.1 F 84 20 141/74 97 11/20/18 23:03 11/20/18 23:03 11/20/18 23:03 11/20/18 23:03 11/20/18 23:03 - Physical Exam Comments: 11/21/18 03:06 Constitutional: Well-nourished, Well-developed, appearing stated age. HEENT: head is normocephalic, atraumatic. EOMI. PERRLA. Neck: supple. Full ROM. Heart: regular rhythm. no murmurs, rubs or gallops. Lungs: clear to auscultation bilaterally. no crackles, rhonchi or wheezing. no stridor. Abdomen: soft, nontender. normal bowel sounds. no rebound, guarding, masses. Extremities: Peripheral pulses intact and equal. No lower extremity edema. Neurological: CN 2-12 grossly intact. Moves all four extremities. Psych: awake, alert, oriented x3. Follows commands. Answers questions appropriately. Moderate Sedation - Procedure Monitoring Vital Signs: Procedure Monitoring Vital Signs Temperature 98.1 F 11/20/18 23:03 Pulse Rate 84 01/02/19 23:03 Respiratory Rate 20 11/20/18 23:03 Blood Pressure 141/74 11/20/18 23:03 O2 Sat by Pulse Oximetry (%) 97 11/20/18 23:03 Heart Score/ECG Review - History History: Slightly suspicious - Electrocardiogram EKG: Non specific repolarization disturbance - Age Age: 45-65 - Risk Factors Risk Factors Heart Score: Yes Hx Hypercholesterolemia, Yes Hx Hypertension, Yes Smoking History, Yes Hx Obesity Based on the list above the patient has:: >/=3 risk factors or Hx atherosclerotic disease - Troponin Troponin: </= normal limit - Score Heart Score - Total: 4 ED Treatment Course - LABORATORY CBC & Chemistry Diagram: 11/21/18 01:51 11/21/18 01:51 Medical Decision Making - Medical Decision Making 11/21/18 02:55 58 year old male with above PMH presented to ED for bilateral anterior chest wall pain. Initial Vital Signs Temp Pulse Resp BP Pulse Ox 98.1 F 84 20 141/74 97 11/20/18 23:03 11/20/18 23:03 11/20/18 23:03 11/20/18 23:03 11/20/18 23:03 Afebrile. No tachycardia. No tachypnea. Mild hypertension. No hypoxia on room air. Labs ordered: CBC, CMP, troponin, BNP Imaging ordered: CXR Medications ordered: none - Pt took 325 mg ASA yesterday EKG performed at 2313: rate 76, regular rhythm, left axis, normal intervals, isolated flipped T in aVL, isolated flat T in V2, inferior Q waves. CXR my read: sharp costophrenic angles. cardiomegaly. no pneumothorax. no infiltrate. similar to prior 02/18/17. - Pending official read CBC WBC 8.2 K/mm3 (4.0-10.0) 11/21/18 01:51 RBC 4.35 M/mm3 (4.00-5.60) 11/21/18 01:51 Hgb 14.4 GM/dL (11.7-16.9) 11/21/18 01:51 Hct 41.4 % (35.4-49) 11/21/18 01:51 MCV 95.1 fl (80-96) 11/21/18 01:51 MCH 33.1 pg (25.7-33.7) 11/21/18 01:51 MCHC 34.8 g/dl (32.0-35.9) 11/21/18 01:51 RDW 13.5 % (11.9-15.9) 11/21/18 01:51 Plt Count 282 K/MM3 (134-434) D 11/21/18 01:51 MPV 8.8 fl (7.5-11.1) 11/21/18 01:51 Absolute Neuts (auto) 4.3 K/mm3 (1.5-8.0) 11/21/18 01:51 Neutrophils % 52.3 % (42.8-82.8) 11/21/18 01:51 Lymphocytes % 37.7 % (8-40) 11/21/18 01:51 Monocytes % 7.7 % (3.8-10.2) 11/21/18 01:51 Eosinophils % 1.8 % (0-4.5) 11/21/18 01:51 Basophils % 0.5 % (0-2.0) 11/21/18 01:51 Nucleated RBC % 0 % (0-0) 11/21/18 01:51 No leukocytosis. No anemia. CMP Sodium 137 mmol/L (136-145) 11/21/18 01:51 Potassium 4.0 mmol/L (3.5-5.1) 11/21/18 01:51 Chloride 104 mmol/L (98-107) 11/21/18 01:51 Carbon Dioxide 26 mmol/L (21-32) 11/21/18 01:51 Anion Gap 7 MMOL/L (8-16) L 11/21/18 01:51 BUN 25 mg/dL (7-18) H 11/21/18 01:51 Creatinine 1.1 mg/dL (0.55-1.3) 11/21/18 01:51 Creat Clearance w eGFR > 60 (>60) 11/21/18 01:51 Random Glucose 112 mg/dL (74-106) H 11/21/18 01:51 Calcium 9.4 mg/dL (8.5-10.1) 11/21/18 01:51 Total Bilirubin 0.3 mg/dL (0.2-1) 11/21/18 01:51 AST 24 U/L (15-37) 11/21/18 01:51 ALT 48 U/L (13-61) 11/21/18 01:51 Alkaline Phosphatase 111 U/L (45-117) 11/21/18 01:51 Creatine Kinase 61 IU/L (26-308) 11/21/18 01:51 Troponin I < 0.02 ng/ml (0.00-0.05) 11/21/18 01:51 B-Natriuretic Peptide 48.4 pg/ml (5-125) 11/21/18 01:51 Total Protein 7.5 g/dl (6.4-8.2) 11/21/18 01:51 Albumin 3.8 g/dl (3.4-5.0) 11/21/18 01:51 No electrolyte abnormalities. No MARK. BUN/CR >20 - Pt is dehydrated No transminitis. Normal cardiac enzymes. Normal BNP. Will repeat cardiac enzymes and EKG. 11/21/18 05:41 Second troponin negative. Will page pt's marketing forecaster, Dr. Lockett. 11/21/18 05:46 Dr. Miranda, covering for Dr. Lockett, paged. 11/21/18 05:57 Dr. Miranda recommended observation. Pt informed of recommendations. Pt agrees to stay for admission. Pending admission. *DC/Admit/Observation/Transfer Diagnosis at time of Disposition: Chest pain - Discharge Dispostion Condition at time of disposition: Improved Decision to Admit order: Yes - Referrals - Patient Instructions - Post Discharge Activity
--- NOTE | 2018-11-21 02:00 | PDOC ---
Attending Attestation - [facility] HPI: 11/21/18 02:01 The patient is a 56 year old male, with a significant PMH of PA s/p stents x3, HLD, HTN who presents to the emergency department with lateral chest discomfort earlier today. Patient also complained of an episode of midsternal chest pain that resolved on its own. Patient states the chest discomfort is nonradiating and intermittent, not exacerbated with breathing. Patient notes he was having a nonproductive cough this morning. Patient saw Dr. Lockett, cardiology, three weeks ago, and had an ECHO done then, which was normal. Patient has also had a stress test within this past year, which was normal. The patient denies shortness of breath, headache and dizziness. Denies fever, chills, nausea, vomit, diarrhea and constipation. Denies dysuria, frequency, urgency and hematuria. Allergies: poison ana, bee stings Past surgical history: None reported. Social history: No reported alcohol, drug or cigarette use. [employer] Senior Sergeant: Dr. Lockett - Physicial Exam PE: 11/21/18 02:02 ADULT PHYSICAL EXAM Constitutional: Awake, alert, oriented. No acute distress. Head: Normocephalic. Atraumatic Eyes: PERRL. EOMI. Conjunctivae are not pale. ENT: Mucous membranes are moist and intact. Posterior pharynx without exudates or erythema. Uvula midline. Neck: Supple. Full ROM. No lymphadenopathy. Cardiovascular: Regular rate. Regular rhythm. S1, S2 regular. Distal pulses are 2+ and symmetric. Pulmonary/Chest: No evidence of respiratory distress. Clear to auscultation bilaterally No wheezing, rales or rhonchi. Abdominal: Soft and non-distended. There is no tenderness. No rebound, guarding or rigidity. No organomegaly. No palpable masses. Good bowel sounds. Back: No CVA tenderness. Musculoskeletal: No edema. No cyanosis. No clubbing. Full range of motion in all extremities. Nocalf tenderness. Radial/pedal pulses are intact and 2+ bilaterally Skin: Skin is warm and dry. No petechiae. No purpura. Neurological: Alert and oriented to person, place, and time. Cranial nerves II -XII are grossly intact. Normal speech. Strength is grossly symmetric. No sensory deficits. Psychiatric: Good eye contact. Normal interaction, affect and behavior. <Dianne,Anusha - Last Filed: 11/21/18 02:01> - Resident Resident Name: Irma Gasca - ED Attending Attestation I have performed the following: I have examined & evaluated the patient, The case was reviewed & discussed with the resident, I agree w/resident's findings & plan, Exceptions are as noted - Medical Decision Making 11/21/18 01:56 I, Dr. Nadine Vines, DO, attest that this document has been prepared under my direction and personally reviewed by me in its entirety. I further attest, that it accurately reflects all work, treatment, procedures and medical decision -making performed by me. 11/21/18 01:56 a/p: 58yo male with hx of PA presents for eval of lateral chest wall pain and an episode of midsternal cp -no sob -no pleuritic component -recent RUE sx -hx of PA - cards Dr. Lockett -off plavix x 2 weeks -on full dose asa -pt is not in acute pain -no leg swelling -will send labs, ekg, cxr -took ASA today -Ortho - Dr. Vale -Will otain trop x 2, discussion with cards 11/21/18 02:04 pt with a cough - cxr clear cough is nonproductive has presented with PA in the past when he had a cough and atypical cp <Nadine Vines - Last Filed: 11/21/18 02:05> Heart Score/ECG Review - ECG Intrepretation Comment:: 11/21/18 01:56 sinus at 76, L axis, q waves inferiorly that are age indeterminate, no acute st/ t wave findings <Nadine Vines - Last Filed: 11/21/18 02:05>
[2018-11-21 02:01] LABS: BASO % 0.5 % (0-2.0); EOS % 1.8 % (0-4.5); HEMATOCRIT 41.4 % (35.4-49); HEMOGLOBIN 14.4 GM/dL (11.7-16.9); LYMPH % 37.7 % (8-40); MCH 33.1 pg (25.7-33.7); MCHC 34.8 g/dl (32.0-35.9); MEAN CELL VOLUME 95.1 fl (80-96); MEAN PLT VOLUME 8.8 fl (7.5-11.1); MONO % 7.7 % (3.8-10.2); NEUT % 52.3 % (42.8-82.8); PLATELET COUNT 282 K/MM3 (134-434); RBC 4.35 M/mm3 (4.00-5.60); RDW 13.5 % (11.9-15.9); WHITE BLOOD COUNT 8.2 K/mm3 (4.0-10.0)
[2018-11-21 02:33] LABS: INR 0.97 (0.83-1.09); PROTHROMBIN TIME (PATIENT) 11.4 SEC (9.7-13.0)
[2018-11-21 02:42] LABS: ALBUMIN 3.8 g/dl (3.4-5.0); ALK PHOS 111 U/L (45-117); ANION GAP 7 MMOL/L (8-16); BILIRUBIN,TOTAL 0.3 mg/dL (0.2-1); BLOOD UREA NITROGEN 25 mg/dL (7-18); CALCIUM 9.4 mg/dL (8.5-10.1); CHLORIDE 104 mmol/L (98-107); CO2 26 mmol/L (21-32); CREATININE 1.1 mg/dL (0.55-1.3); GLUCOSE,RANDOM 112 mg/dL (74-106); N-TERMINAL BNP 48.4 pg/ml (5-125); SGOT/AST 24 U/L (15-37); SGPT/ALT 48 U/L (13-61); SODIUM 137 mmol/L (136-145); TOT PROT 7.5 g/dl (6.4-8.2)
[2018-11-21] MEDS ORDERED: LISINOPRIL 5 MG TABLET (FP) ONE (08:18)
[2018-11-21] MEDS ORDERED: HYDROCHLOROTHIAZIDE 25 MG TABLET (FP) ONE (08:18)
[2018-11-21] MEDS ORDERED: PANTOPRAZOLE 40 MG TABLET (FP) ONE (08:18)
[2018-11-21] MEDS ORDERED: ASPIRIN 81 MG CHEWABLE TABLETS ONE (08:18)
--- NOTE | 2018-11-21 08:56 | HP ---
CHIEF COMPLAINT: PCP: Dr. Cervantes HISTORY OF PRESENT ILLNESS: 58 yom with PMHx of CAD s/p Multiple PCI (last in 2013), HTN, HLD, RISHABH on nightly CPAP, recent left distal biceps tendon repair on 11/[address] Vale was in his USOH till yesterday morning when had a coughing episode lasting 15 min. No fevers/chills, URI like illness or sick contacts. Was fine all day, later in the evening had a heavy dinner with meat loaf/serbian onion soup, came home had an episode of tightness in bilateral flanks, reports more like a ' stomach upset', that resolved with no additional intervention in the ED. symptoms not similar to his prior ID when had substernal chest pressure. Has been feeling well all night, tolerated breakfast this AM and eager to go home. 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 Had 2D echo within last [address] Lockett prior to surgery. Also reports stress test in the last year, reportedly non concerning. 12 point ROS done, neg except above. Recent Travel: None PAST MEDICAL HISTORY: CAD s/p Multiple PCI (last in 2013), HTN, HLD, RISHABH on nightly CPAP, recent left distal biceps tendon repair on 11/[address] Vale PAST SURGICAL HISTORY: as above Social History: Smoking: denies Alcohol: denies Drugs: denies Family History: Reviewed and found to be non contributory Allergies poison ana extract Allergy (Severe, Verified 11/07/18 12:43) Hives bee sting Allergy (Severe, Uncoded 11/07/18 12:43) Swelling HOME MEDICATIONS: Home Medications Medication Instructions Recorded Aspirin 81 mg PO DAILY 02/20/14 Metoprolol Succinate [Toprol XL -] 25 mg PO DAILY 02/20/14 Pravastatin Sodium [Pravachol] 40 mg PO DAILY 02/18/17 Cholecalciferol (Vitamin D3) 2,000 unit PO DAILY 11/06/18 [Vitamin D] Lisinopril/Hydrochlorothiazide 1 each PO DAILY 11/06/18 [Lisinopril-Hctz 10-12.5 mg Tab] Pantoprazole Sodium 40 mg PO DAILY 11/06/18 REVIEW OF SYSTEMS CONSTITUTIONAL: Absent: fever, chills, diaphoresis, generalized weakness, malaise, loss of appetite, weight change HEENT: Absent: rhinorrhea, nasal congestion, throat pain, throat swelling, difficulty swallowing, mouth swelling, ear pain, eye pain, visual changes CARDIOVASCULAR: Absent: chest pain, syncope, palpitations, irregular heart rate, lightheadedness , peripheral edema RESPIRATORY: Absent: cough, shortness of breath, dyspnea with exertion, orthopnea, wheezing, stridor, hemoptysis GASTROINTESTINAL: Absent: abdominal pain, abdominal distension, nausea, vomiting, diarrhea, constipation, melena, hematochezia GENITOURINARY: Absent: dysuria, frequency, urgency, hesitancy, hematuria, flank pain, genital pain MUSCULOSKELETAL: Absent: myalgia, arthralgia, joint swelling, back pain, neck pain SKIN: Absent: rash, itching, pallor HEMATOLOGIC/IMMUNOLOGIC: Absent: easy bleeding, easy bruising, lymphadenopathy, frequent infections ENDOCRINE: Absent: unexplained weight gain, unexplained weight loss, heat intolerance, cold intolerance NEUROLOGIC: Absent: headache, focal weakness or paresthesias, dizziness, unsteady gait, seizure, mental status changes, bladder or bowel incontinence PSYCHIATRIC: Absent: anxiety, depression, suicidal or homicidal ideation, hallucinations. PHYSICAL EXAMINATION Vital Signs - 24 hr 11/20/18 11/21/18 23:03 05:49 Temperature 98.1 F 97.7 F Pulse Rate 84 Pulse Rate [ 65 Apical] Respiratory 20 16 Rate Blood Pressure 141/74 Blood Pressure 107/65 [Left Arm] O2 Sat by Pulse 97 98 Oximetry (%) GENERAL: Awake, alert, and fully oriented, in no acute distress, morbidly obese male (BMI 38). HEAD: Normal with no signs of trauma. EYES: Pupils equal, round and reactive to light, extraocular movements intact, sclera anicteric, conjunctiva clear. No lid lag. EARS, NOSE, THROAT: Ears normal, nares patent, oropharynx clear without exudates. Moist mucous membranes. NECK: Normal range of motion, supple without lymphadenopathy, JVD, or masses. LUNGS: Breath sounds equal, clear to auscultation bilaterally. No wheezes, and no crackles. No accessory muscle use. HEART: Regular rate and rhythm, normal S1 and S2 ABDOMEN: Soft, nontender, not distended, normoactive bowel sounds, no guarding, no rebound, no masses. No hepatomegaly or splenomegaly. MUSCULOSKELETAL: Right forearm dressing with immobilizer UPPER EXTREMITIES: RUE as above, positive pulses bilaterally LOWER EXTREMITIES: trace pedal edema, (chronic per patient), no calf tenderness or swelling noted NEUROLOGICAL: Cranial nerves II-XII intact. Normal speech. Gait deferred. PSYCHIATRIC: Cooperative. Good eye contact. Appropriate mood and affect. SKIN: Warm, dry, normal turgor, no rashes or lesions noted, normal capillary refill. Laboratory Results - last 24 hr 11/21/18 11/21/18 11/21/18 01:51 01:51 01:51 WBC 8.2 RBC 4.35 Hgb 14.4 Hct 41.4 MCV 95.1 MCH 33.1 MCHC 34.8 RDW 13.5 Plt Count 282 D MPV 8.8 Absolute Neuts (auto) 4.3 Neutrophils % 52.3 Lymphocytes % 37.7 Monocytes % 7.7 Eosinophils % 1.8 Basophils % 0.5 Nucleated RBC % 0 PT with INR INR PTT (Actin FS) 28.0 Sodium 137 Potassium 4.0 Chloride 104 Carbon Dioxide 26 Anion Gap 7 L BUN 25 H Creatinine 1.1 Creat Clearance w eGFR > 60 Random Glucose 112 H Calcium 9.4 Total Bilirubin 0.3 AST 24 ALT 48 Alkaline Phosphatase 111 Creatine Kinase 61 Troponin I < 0.02 B-Natriuretic Peptide 48.4 Total Protein 7.5 Albumin 3.8 Blood Type Antibody Screen 11/21/18 11/21/18 11/21/18 01:51 01:51 01:51 WBC RBC Hgb Hct MCV MCH MCHC RDW Plt Count MPV Absolute Neuts (auto) Neutrophils % Lymphocytes % Monocytes % Eosinophils % Basophils % Nucleated RBC % PT with INR 11.40 INR 0.97 PTT (Actin FS) Sodium Potassium Chloride Carbon Dioxide Anion Gap BUN Creatinine Creat Clearance w eGFR Random Glucose Calcium Total Bilirubin AST ALT Alkaline Phosphatase Creatine Kinase Troponin I B-Natriuretic Peptide Cancelled Total Protein Albumin Blood Type O POSITIVE Antibody Screen Negative 11/21/18 04:39 WBC RBC Hgb Hct MCV MCH MCHC RDW Plt Count MPV Absolute Neuts (auto) Neutrophils % Lymphocytes % Monocytes % Eosinophils % Basophils % Nucleated RBC % PT with INR INR PTT (Actin FS) Sodium Potassium Chloride Carbon Dioxide Anion Gap BUN Creatinine Creat Clearance w eGFR Random Glucose Calcium Total Bilirubin AST ALT Alkaline Phosphatase Creatine Kinase Troponin I 0.02 B-Natriuretic Peptide Total Protein Albumin Blood Type Antibody Screen EKG NSR biphasic T in V2 EKG 2 upright T in V2, otherwise unchanged CXR - no acute process ASSESSMENT/PLAN: 58 yom with pMHx of CAD s/p Multiple PCI (last in 2013), HTN, HLD, RISHABH on nightly CPAP, recent right distal bicep tendon surgery with atypical abdominal / flank pain in the setting of heavy meal, now resolved -Bilateral flank pain in the setting of heavy meal, resolved -CAD s/p multiple PCI (last in 2013) -HTN -HLD -RISHABH on nightly CPAP -Recent right distal bicep tendon surgery Plan: Atypical symptoms, resolved. EKG non concerning. Troponin neg x 2, Patient asymptomatic. Recent reported w/u including 2D echo and stress test with Dr. Lockett. Resume home meds including ASA/metoprolol/statin/lisinopril/HCTZ. Plan for d/c later today pending cardiology input (Discussed with Dr. Watson) Plan discussed with patient and nursing and all questions answered Admit to obs total admit time 50 min. Visit type - Emergency Visit Emergency Visit: Yes ED Registration Date: 11/21/18 Care time: The patient presented to the Emergency Department on the above date and was hospitalized for further evaluation of their emergent condition. - New Patient This patient is new to me today: Yes Date on this admission: 11/21/18 - Critical Care Critical Care patient: No
[2018-11-21] MEDS ORDERED: metoPROLOL SUCCINATE 25 MG TAB.SR.24H (FP) PO SCH (10:00)
[2018-11-21] MEDS ORDERED: ASPIRIN 81 MG CHEWABLE TABLETS PO SCH (10:00)
[2018-11-21] MEDS ORDERED: HYDROCHLOROTHIAZIDE 12.5 MG CAPSULE (FP) PO SCH (10:00)
[2018-11-21] MEDS ORDERED: PATIENT'S OWN MEDICATION (NON-FORMULARY) (Lisinopril/Hydrochlorothiazide [Lisinopril-Hctz PO SCH (10:00)
[2018-11-21] MEDS ORDERED: PANTOPRAZOLE 40 MG TABLET (FP) PO SCH (10:00)
[2018-11-21] MEDS ORDERED: LISINOPRIL 10 MG TABLET (FP) PO SCH (10:00)
[2018-11-21 10:23] VITALS: BP 127/81; PULSE 68; TEMP 98.2
--- NOTE | 2018-11-21 14:18 | CON.CARD ---
Consult Consult Specialty:: Cardiology Referred by:: Dashawn Reason for Consultation:: chest pain - History of Present Illness Chief Complaint: abd pain History of Present Illness: 58M h/o CAD s/p multiple PCI last 2013, HTN, HLD, RISHABH on CPAP p/w coughing x 15 min day prior to admission, felt okay during the day and then had a heavy dinner that night. [place] pain in sides of chest and his stomach that resolved in the ED. Symptoms are unlike prior UT, had substernal chest pressure at the time radiating to arms. He is active at work with lifting, walking, and denies any exertional symptoms. Patient of Dr. Lockett, reportedly had echo in last two weeks prior to recent surgery and stress test in last year. - Past Medical History Cardio/Vascular: Yes: CAD - Alcohol/Substance Use Hx Alcohol Use: No - Smoking History Smoking history: Former smoker Have you smoked in the past 12 months: No Aproximately how many cigarettes per day: 20 If you are a former smoker, when did you quit?: 2013 Home Medications - Allergies Allergies/Adverse Reactions: Allergies Allergy/AdvReac Type Severity Reaction Status Date / Time poison ana extract Allergy Severe Hives Verified 11/07/18 12:43 bee sting Allergy Severe Swelling Uncoded 11/07/18 12:43 - Home Medications Home Medications: Ambulatory Orders Aspirin 81 mg PO DAILY 02/20/14 Metoprolol Succinate [Toprol XL -] 25 mg PO DAILY 02/20/14 Pravastatin Sodium [Pravachol] 40 mg PO DAILY 02/18/17 Cholecalciferol (Vitamin D3) [Vitamin D3] 2,000 unit PO DAILY 11/06/18 Lisinopril/Hydrochlorothiazide [Lisinopril-Hctz 10-12.5 mg Tab] 1 each PO DAILY 11/06/18 Pantoprazole Sodium 40 mg PO DAILY 11/06/18 Family Disease History - Family Disease History Family History: Unremarkable Review of Systems - Review of Systems Constitutional: reports: No Symptoms Eyes: reports: No Symptoms HENT: reports: No Symptoms Neck: reports: No Symptoms Cardiovascular: reports: No Symptoms Respiratory: reports: No Symptoms Gastrointestinal: reports: No Symptoms Genitourinary: reports: No Symptoms Musculoskeletal: reports: No Symptoms Integumentary: reports: No Symptoms Neurological: reports: No Symptoms Endocrine: reports: No Symptoms Hematology/Lymphatic: reports: No Symptoms Psychiatric: reports: No Symptoms Vital Signs: Vital Signs Temperature 98.2 F 11/21/18 10:23 Pulse Rate 68 11/21/18 10:23 Respiratory Rate 18 11/21/18 10:23 Blood Pressure 127/81 11/21/18 10:23 O2 Sat by Pulse Oximetry (%) 96 11/21/18 10:23 Constitutional: Yes: Well Nourished, No Distress, Calm Eyes: Yes: Conjunctiva Clear, EOM Intact HENT: Yes: Atraumatic, Normocephalic Neck: Yes: Supple, Trachea Midline Respiratory: Yes: Regular, CTA Bilaterally Gastrointestinal: Yes: Normal Bowel Sounds, Soft Cardiovascular: Yes: Regular Rate and Rhythm JVD: No Carotid Bruit: No PMI: Non-Displaced Heart Sounds: Yes: S1, S2 Musculoskeletal: No: Back Pain Extremities: No: Cool Edema: No Peripheral Pulses WNL: Yes Peripheral Pulses: 2+ Left Carotid, 2+ Right Carotid, 2+ Left Doralis Pedis, 2+ Right Dorsalis Pedis Integumentary: No: Jaundice Neurological: Yes: Alert, Oriented Psychiatric: Yes: Alert, Oriented - Other Data Labs, Other Data: CBC, BMP 11/21/18 01:51 11/21/18 01:51 INR, PTT INR 0.97 (0.83-1.09) 11/21/18 01:51 Troponin, BNP 11/21/18 11/21/18 11/21/18 01:51 01:51 04:39 Troponin I < 0.02 0.02 B-Natriuretic Peptide 48.4 Cancelled Troponin, BNP 11/21/18 11/21/18 11/21/18 01:51 01:51 04:39 Troponin I < 0.02 0.02 B-Natriuretic Peptide 48.4 Cancelled Assessment/Plan EKG: sinus bradycardia, old inferior infarct, no ischemic changes echo 07/2018 tds, LV probably mildly dilated, nl LV function, hypokinesis of basal to mid inferolateral wall, nl RV, LA mildly dialted, mildly increased PV gradient 10 mmHG stress echo 02/2017 nonischemic EKG, evidence of known preexisting scar involving inferolateral and basal inferior wall with no echo e/o inducible ischemia in remaining territories, slightly submaximal HR acheived reduces sensitivity slightly (80% MPHR) flank/abd pain, chest pain - trop neg x 2 - asymptomatic currently - EKG unchanged from prior, atypical symptoms - recent echo unremarkable - has upcoming follow up appointment with Dr. Lockett - stable for dc from cardiac perspective CAD - continue aspirin, statin, lisinopril, metoprolol HTN - stable, continue home meds HLD - cont statin
--- NOTE | 2018-11-21 14:48 | DS ---
Physical Exam: SUBJECTIVE: Patient seen and examined, no chest or abdominal pain. Feeling well , eager to go home. Tolerated diet well. OBJECTIVE: Vital Signs Period Temp Pulse Resp BP Sys/Hansen Pulse Ox Last 24 Hr 97.7 F-98.2 F 65-84 16-20 107-141/65-81 96-98 PHYSICAL EXAM GENERAL: Awake, alert, and fully oriented, in no acute distress, morbidly obese male (BMI 38). HEAD: Normal with no signs of trauma. EYES: Pupils equal, round and reactive to light, extraocular movements intact, sclera anicteric, conjunctiva clear. No lid lag. EARS, NOSE, THROAT: Ears normal, nares patent, oropharynx clear without exudates. Moist mucous membranes. NECK: Normal range of motion, supple without lymphadenopathy, JVD, or masses. LUNGS: Breath sounds equal, clear to auscultation bilaterally. No wheezes, and no crackles. No accessory muscle use. HEART: Regular rate and rhythm, normal S1 and S2 ABDOMEN: Soft, nontender, not distended, normoactive bowel sounds, no guarding, no rebound, no masses. No hepatomegaly or splenomegaly. MUSCULOSKELETAL: Right forearm dressing with immobilizer UPPER EXTREMITIES: RUE as above, positive pulses bilaterally LOWER EXTREMITIES: trace pedal edema, (chronic per patient), no calf tenderness or swelling noted NEUROLOGICAL: Cranial nerves II-XII intact. Normal speech. Gait deferred. PSYCHIATRIC: Cooperative. Good eye contact. Appropriate mood and affect. SKIN: Warm, dry, normal turgor, no rashes or lesions noted, normal capillary refill. LABS Laboratory Results - last 24 hr 11/21/18 11/21/18 11/21/18 01:51 01:51 01:51 WBC 8.2 RBC 4.35 Hgb 14.4 Hct 41.4 MCV 95.1 MCH 33.1 MCHC 34.8 RDW 13.5 Plt Count 282 D MPV 8.8 Absolute Neuts (auto) 4.3 Neutrophils % 52.3 Lymphocytes % 37.7 Monocytes % 7.7 Eosinophils % 1.8 Basophils % 0.5 Nucleated RBC % 0 PT with INR INR PTT (Actin FS) 28.0 Sodium 137 Potassium 4.0 Chloride 104 Carbon Dioxide 26 Anion Gap 7 L BUN 25 H Creatinine 1.1 Creat Clearance w eGFR > 60 Random Glucose 112 H Calcium 9.4 Total Bilirubin 0.3 AST 24 ALT 48 Alkaline Phosphatase 111 Creatine Kinase 61 Troponin I < 0.02 B-Natriuretic Peptide 48.4 Total Protein 7.5 Albumin 3.8 Blood Type Antibody Screen 11/21/18 11/21/18 11/21/18 01:51 01:51 01:51 WBC RBC Hgb Hct MCV MCH MCHC RDW Plt Count MPV Absolute Neuts (auto) Neutrophils % Lymphocytes % Monocytes % Eosinophils % Basophils % Nucleated RBC % PT with INR 11.40 INR 0.97 PTT (Actin FS) Sodium Potassium Chloride Carbon Dioxide Anion Gap BUN Creatinine Creat Clearance w eGFR Random Glucose Calcium Total Bilirubin AST ALT Alkaline Phosphatase Creatine Kinase Troponin I B-Natriuretic Peptide Cancelled Total Protein Albumin Blood Type O POSITIVE Antibody Screen Negative 11/21/18 04:39 WBC RBC Hgb Hct MCV MCH MCHC RDW Plt Count MPV Absolute Neuts (auto) Neutrophils % Lymphocytes % Monocytes % Eosinophils % Basophils % Nucleated RBC % PT with INR INR PTT (Actin FS) Sodium Potassium Chloride Carbon Dioxide Anion Gap BUN Creatinine Creat Clearance w eGFR Random Glucose Calcium Total Bilirubin AST ALT Alkaline Phosphatase Creatine Kinase Troponin I 0.02 B-Natriuretic Peptide Total Protein Albumin Blood Type Antibody Screen EKG 1 NSR biphasic T in v2 EKG 2 NSR Upright T in V2, no acute ST-T changes CXR no acute process HOSPITAL COURSE: Date of Admission:11/21/18 Date of Discharge: 11/21/18 Minutes to complete discharge: 35 Discharge Summary Reason For Visit: CHEST PAIN Current Active Problems Chest pain (Acute) Hospital Course: 58 yom with PMHx of CAD s/p Multiple PCI (last in 2013), HTN, HLD, RISHABH on nightly CPAP, recent left distal biceps tendon repair on 11/[address] Vale admitted with bilateral flank pressure after eating a heavy meal that resolved in the ED with no additional intervention. He was watched on telemetry with no events. Troponins were negative. EKGs were non concerning. He continued to stay asymptomatic. He had recent 2d echo prior to his biceps surgery and also stress test within last year with Dr. Lockett. He was evaluated by Dr. Watson from cardiology and deemed stable for discharge with outpatient follow up. Condition: Improved - Instructions Diet, Activity, Other Instructions: You were watched on monitor, heart attack was ruled out. You were seen by cardiology and deemed stable for home discharge. Please call 911 or come to ED if any new chest pain, trouble breathing or new concerns. Referrals: Perfecto Cervantes MD [Primary Care Provider] - Isidro Lockett MD [Staff Physician] - Disposition: HOME - Home Medications Comprehensive Discharge Medication List: Ambulatory Orders Aspirin 81 mg PO DAILY 02/20/14 Metoprolol Succinate [Toprol XL -] 25 mg PO DAILY 02/20/14 Pravastatin Sodium [Pravachol] 40 mg PO DAILY 02/18/17 Cholecalciferol (Vitamin D3) [Vitamin D3] 2,000 unit PO DAILY 11/06/18 Lisinopril/Hydrochlorothiazide [Lisinopril-Hctz 10-12.5 mg Tab] 1 each PO DAILY 11/06/18 Pantoprazole Sodium 40 mg PO DAILY 11/06/18 This patient is new to me today: Yes Date on this admission: 11/21/18 Emergency Visit: Yes ED Registration Date: 11/21/18 Care time: The patient presented to the Emergency Department on the above date and was hospitalized for further evaluation of their emergent condition. Critical Care patient: No - Discharge Referral Referred to [facility] Med P.C.: No
--- NOTE | 2018-11-21 16:17 | EKG ---
Test Reason : Blood Pressure : / mmHG Vent. Rate : 076 BPM Atrial Rate : 076 BPM P-R Int : 172 ms QRS Dur : 092 ms QT Int : 376 ms P-R-T Axes : 044 -30 093 degrees QTc Int : 423 ms NORMAL SINUS RHYTHM LEFT AXIS DEVIATION INFERIOR INFARCT (CITED ON OR BEFORE 20-FEB-2014) ABNORMAL ECG WHEN COMPARED WITH ECG OF 19-FEB-2017 11:13, NO SIGNIFICANT CHANGE WAS FOUND Confirmed by FIDENCIO POWER, ELLA ([id number]) on 11/21/2018 4:17:04 PM Referred By: Confirmed By:ELLA NICOLAS MD
--- NOTE | 2018-11-21 16:17 | EKG ---
Test Reason : Blood Pressure : / mmHG Vent. Rate : 056 BPM Atrial Rate : 056 BPM P-R Int : 164 ms QRS Dur : 094 ms QT Int : 438 ms P-R-T Axes : 023 -03 116 degrees QTc Int : 422 ms SINUS BRADYCARDIA INFERIOR INFARCT (CITED ON OR BEFORE 20-FEB-2014) ABNORMAL ECG WHEN COMPARED WITH ECG OF 20-NOV-2018 23:13, NO SIGNIFICANT CHANGE WAS FOUND Confirmed by FIDENCIO POWER, ELLA ([id number]) on 11/21/2018 4:16:51 PM Referred By: Confirmed By:ELLA NICOLAS MD
== END 2018-11-21 15:30 | disposition home or self-care (01) ==
LOC: JER 22:48 → JERBED 11-21 06:00
PROVIDERS: ADMIT Hospitalist; ATTEND Hospitalist
DX: R07.9 Chest pain, unspecified (principal); I10 Essential (primary) hypertension; I25.10 Atherosclerotic heart disease of native coronary artery without angina pectoris; I25.2 Old myocardial infarction; E78.5 Hyperlipidemia, unspecified; Z87.891 Personal history of nicotine dependence; Z91.038 Other insect allergy status; Z79.82 Long term (current) use of aspirin; Z95.5 Presence of coronary angioplasty implant and graft; G47.33 Obstructive sleep apnea (adult) (pediatric); Z99.89 Dependence on other enabling machines and devices; E66.01 Morbid (severe) obesity due to excess calories; Z68.38 Body mass index [BMI] 38.0-38.9, adult
CPT/HCPCS: 36415; 71046-TC-FY; 80053; 82550; 83880; 84484; 85025; 85610; 85730; 86850; 86900; 86901; 93005; 93010; 99284-25; G0378